=== PATIENT | male | born 1945 | race Caucasian/White ===

== ENCOUNTER 2016-10-13 01:27 | Observation (INO) ==
--- NOTE | 2016-10-13 02:18 | Emergency Department Note ---
Arrival - Arrival Chief Complaint: Chest Pain Stated Complaint: chest pain ED Nursing Triage Note: C/O Chest pain across lower chest- onset yesterday. Pt reports that the main reason he is here is for frequent urination and lower back pain that started last Monday. Pt reports that he was seen in the ER for this complaint and also saw PCP earlier this week and no DX was made. Pt states that he is urinating every hour and wants to be admitted to get down to the bottom of this problem. Denies fever. Reports that he is urinating an adequate amount, but it is just frequently. Mode of Arrival: Ambulatory Limitations: No Limitations Source: Patient Time Seen by Provider: 10/13/16 01:43 - History of Present Illness HPI Narrative: Patient complains of right sided and substernal cramping chest pain intermittently since around 6:00 tonight. Episodes last approximately 30 minutes. He is currently asymptomatic. He denies any nausea, vomiting, shortness of breath or diaphoresis. He has some chronic numbness to the dorsum of the left hand and he states that this may have been a little worse today but he has had no pain in the left upper extremity. He notes no exacerbating or relieving factors. He does have a history of heart disease with a stent in 2011. The patient also complains of frequent urination for the past 2 days. He was seen here 4 days ago for lower back pain. Allergies/Adverse Reactions: Allergies Allergy/AdvReac Type Severity Reaction Status Date / Time azithromycin [From Zithromax] Allergy Unknown Unknown/Unable Verified 07/17/16 11:27 to obtain Home Medications: Home Medications Medication Instructions Recorded Confirmed Type Aspirin [Ecotrin] 81 mg PO DAILY 11/13/14 10/13/16 History Clopidogrel [Plavix] 75 mg PO DAILY 11/13/14 10/13/16 History Gabapentin 100 mg PO TID 11/13/14 10/13/16 History Lisinopril 20 mg PO DAILY 11/13/14 10/13/16 History Magnesium Oxide 400 mg PO TID 11/13/14 10/13/16 History Metformin HCl 1,000 mg PO BID W/MEALS 11/13/14 10/13/16 History Omeprazole [Prilosec] 20 mg PO DAILY 11/13/14 10/13/16 History Pravastatin Sodium 40 mg PO DAILY 11/13/14 10/13/16 History Tamsulosin [Flomax] 0.4 mg PO BID 11/13/14 10/13/16 History Gemfibrozil [Lopid] 600 mg PO BID 09/22/15 10/13/16 History Hyoscyamine Tab [Levsin Tab] 0.125 mg PO Q6H PRN 04/08/16 10/13/16 History Carvedilol [Coreg] 6.25 mg PO BID #180 tablet 04/10/16 10/13/16 Rx Oxybutynin Chloride [Oxybutynin 10 mg PO DAILY 10/09/16 10/13/16 History Chloride ER] sitaGLIPtin [Januvia] 100 mg PO DAILY 10/09/16 10/13/16 History Review of System - Review of System 12 point system: reviewed and no additional remarkable complaints except as stated - Review of System Constitutional: Absent: diaphoresis, fever, weakness Head/Ears/Nose/Throat: Absent: nasal drainage, sore throat Respiratory: Absent: cough, respiratory distress Cardiovascular: Present: chest pain. Absent: palpitations, dyspnea on exertion , orthopnea, edema, syncope Gastrointestinal: Absent: abdominal pain, nausea, vomiting Genitourinary male: Present: frequency. Absent: dysuria, discharge Musculoskeletal: Present: back pain Medical,Surgical,& Family Hx - Medical History Cardio: History of: CAD, Hypertension, PR Neurology: History of: Cerebrovascular Accident (2011), TIA (2012) No history of: Seizures HEENT: History of: Eye Problem (wears glasses) Endocrine: History of: Diabetes Mellitus (NIDDM) (Metformin), Dyslipidemia Genitourinary: History of: Prostate Problems (Enlarged prostate) Gastrointestinal: History of: GERD, Liver Problems (Spot on liver (DR. north) ) Musculoskeletal: History of: Back/Neck Problems (chronic neck pain), Degenerative Disk Disease - Surgical History Cardiac Surgeries: Sugical HX of: Cardiac Catheterization (stent placed in 2011) Abdominal Surgeries: Surgical HX of: Colonoscopy, EGD Reproductive Surgeries: Surgical HX of;: Genitourinary Surgery, Prostate Surgery - Family History Family History: Reports;: Family Diabetes (Mother, Father, Brother, Sister), Family Heart Disease (Sister), Family Hypertension (Mother, Father, Sister) - Social History Smoking Status: Former smoker Frequency of Alcohol Use: None Type of Drug Use: None Exam Physical Examination: GENERAL: Alert. No acute distress. HEENT: Normocephalic and atraumatic. There is no nasal drainage. No pharyngeal erythema or exudate. NECK: Normal inspection. Supple. No lymphadenopathy or meningismus. LUNGS: No respiratory distress. Clear to auscultation bilaterally, no wheezes, rales or rhonchi. HEART: Regular rate and rhythm. ABDOMEN: Soft, nontender and nondistended with normoactive bowel sounds. BACK: Normal inspection. SKIN: Color normal. Warm and dry. EXTREMITIES: Nontender. Normal range of motion. No pedal edema. NEUROLOGICAL/PSYCHIATRIC: Alert and oriented -3 with normal mood and affect. Cranial nerves normal. No motor or sensory deficit. Vital Signs: Vital Signs Temperature 98.2 F 10/13/16 01:33 Pulse Rate 62 10/13/16 01:33 Respiratory Rate 18 10/13/16 02:22 Blood Pressure 119/63 10/13/16 01:33 O2 Sat by Pulse Oximetry 97 10/13/16 01:33 Course - Reevaluation(s) Reevaluation #1: Patient has remained asymptomatic since arrival here. He is sleeping comfortably. His workup is essentially negative, however, he does have a history of CAD and had a positive stress test back in March. He stopped his isosorbide at some point and after further talking to him it sounds like he has been having episodes of chest pain about once a week for the last few months. I discussed patient with Dr. Hubbard and will admit for rule out and further evaluation. Time: 05:11 Results - Labs CBC & BMP: 10/13/16 02:15 10/13/16 02:15 Lab Results: I have reviewed the patients labs Labs: Laboratory Tests 10/13/16 10/13/16 10/13/16 02:15 02:15 02:15 INR 1.0 Magnesium 1.8 Total Bilirubin < 0.39 AST 13 ALT 17 CK-MB (CK-2) 2.2 Troponin I < 0.015 Urine RBC <1 Urine WBC <1 - Impressions EKG shows a normal sinus rhythm at 65 with an occasional PVC. There are Q waves in V2. Chest x-ray shows no acute cardiopulmonary abnormality. Disposition Clinical Impression: Atypical chest pain, CAD (coronary artery disease) Case discussed with: patient Disposition: Still a Patient Condition: Stable Time of Disposition: 05:13
[2016-10-13 02:22] LABS: Basophils % 0.5 % (0.0-0.8); Eosinophils # 0.1 10*3/uL (0.0-0.87); Eosinophils % 2.4 % (0.00-10.9); Hematocrit 37.4 VOL% (42.0-52.0); Hemoglobin 12.5 GM/DL (14.0-18.0); Immature Granulocytes % 0.2 %; Immature Granulocytes Absolute 0.01 #; Lymphocytes # 2.8 10*3/uL (1.4-4.0); Lymphocytes % 49.2 % (21.2-54.2); Mean Corpuscular HGB Conc 33.4 GM/DL (32-36); Mean Corpuscular Hemoglobin 31 PG (27-34); Mean Corpuscular Volume 93.3 FL (87-102); Mean Platelet Volume 11.2 FL (9.6-12.0); Monocytes # 0.3 10*3/uL (0.11-0.8); Monocytes % 5.8 % (1.7-12.7); Neutrophils # 2.4 10*3/uL (1.4-7.4); Neutrophils % 41.9 % (38.7-73.9); Platelet Count 164 T/CUMM (130-400); Red Blood Count 4.01 MC/CUMM (3.8-5.5); Red Cell Distribution Width 13.4 % (9.3-17.3); White Blood Count 5.7 T/CUMM (4-12)
[2016-10-13 02:31] LABS: PT Patient Result 10.7 SECS; Partial Thromboplastin Time 34.1 SECS (0-40)
[2016-10-13 02:49] LABS: Alanine Aminotransferase 17 U/L (16-61); Albumin 3.9 G/DL (3.4-5.0); Alkaline Phosphatase 60 U/L (45-117); Amylase 47 U/L (25-115); Aspartate Amino Transferase 13 U/L (0-37); Bilirubin,Total < 0.39 MG/DL (0.2-1.0); Blood Urea Nitrogen 13 MG/DL (7-18); Calcium 9.6 MG/DL (8.5-10.1); Glucose 97 MG/DL (74-106); Magnesium 1.8 MG/DL (1.8-2.4); Osmolality,Calculated 282.1 MOS/KG (273-304); Potassium 4.3 MMOL/L (3.5-5.1); Sodium 142 MMOL/L (136-145); Total Protein 7.1 G/DL (6.4-8.3); Troponin I Only < 0.015 NG/ML (0.00-0.045)
[2016-10-13 04:07] LABS: Apearance,Urine CLEAR (Clear); Bilirubin,Urine Negative (Negative); Blood, Urine Negative (Negative); Glucose,Urine (UA) Negative (Negative); Ketones,Urine Negative (Negative); Mucus,Urine Occasional /LPF (Occasional); Nitrite,Urine Negative (Negative); Protein,Urine Negative; RBC,Urine <1 /HPF (0-4); Urine Color Straw (Yellow); Urine Specific Gravity 1.008 (1.001-1.035); Urine Urobilinogen < 2.0 EU/DL (0.2-1.0); WBC,Urine <1 /HPF (0-6)
[2016-10-13] MEDS ORDERED: HYOSCYAMINE 0.125 MG TABLET PO PRN (05:44)
[2016-10-13] MEDS ORDERED: ONDANSETRON 4 MG/2 ML VIAL IV PRN (05:44)
[2016-10-13] MEDS ORDERED: MAGNESIUM SULF RIDER 2 GM in PREMIX 1 EACH IV PRN (05:44)
[2016-10-13] MEDS ORDERED: GLUCAGON 1 MG VIAL IM PRN (05:44)
[2016-10-13] MEDS ORDERED: MORPHINE 2 MG/1 ML SYRINGE IV PRN (05:44)
[2016-10-13] MEDS ORDERED: MAGNESIUM SULF RIDER 4 GM in PREMIX 1 EACH IV PRN (05:44)
[2016-10-13] MEDS ORDERED: DEXTROSE 50% 25 GM/50 ML VIAL IV PRN (05:44)
[2016-10-13] MEDS ORDERED: ACETAMINOPHEN 325 MG TABLET PO PRN (05:44)
--- NOTE | 2016-10-13 07:30 | XRay Report ---
Exam: XR chest 1V portable Date: 10/13/2016 2:15 AM Indication: Chest pain Comparison: 04/16/2016 Technical: AP portable Findings: Mild cardiac enlargement. Osteophytes are present thoracic spine with arthritic changes of the AC joints bilaterally. No obvious infiltrate or effusion. Mediastinum is otherwise intact Impression: 1. Cardiomegaly without decompensation 2. No acute cardiopulmonary pathology 3. Degenerative spondylosis change thoracic spine and arthritic changes AC joints bilaterally PROCEDURE INTERPRETED AT [facility] DEPARTMENT OF RADIOLOGY Final Report Signed by: Dr. Uziel Matthews
[2016-10-13 07:31] LABS: Troponin I Only < 0.015 NG/ML (0.00-0.045)
[2016-10-13] MEDS: LISINOPRIL 20 MG TABLET PO SCH (09:03)
[2016-10-13] MEDS: GABAPENTIN 100 MG CAPSULE PO SCH ×3 (09:03→21:53)
[2016-10-13] MEDS: PRAVASTATIN 40 MG TABLET PO SCH (09:03)
[2016-10-13] MEDS: TAMSULOSIN 0.4 MG CAPSULE PO SCH ×2 (09:03→21:53)
[2016-10-13] MEDS: CLOPIDOGREL 75 MG TABLET PO SCH (09:03)
[2016-10-13] MEDS: PANTOPRAZOLE 40 MG TABLET PO SCH (09:03)
[2016-10-13] MEDS: MAGNESIUM OXIDE 400 MG TABLET PO SCH ×3 (09:03→21:53)
[2016-10-13] MEDS: ASPIRIN EC 81 MG TABLET PO SCH (09:03)
[2016-10-13] MEDS: metFORMIN 500 MG TABLET PO SCH ×2 (09:04→16:40)
[2016-10-13] MEDS: GEMFIBROZIL 600 MG TABLET PO SCH ×2 (09:04→21:53)
[2016-10-13] MEDS: sitaGLIPtin 100 MG TABLET PO SCH (09:04)
[2016-10-13] MEDS: CARVEDILOL 6.25 MG TABLET PO SCH ×2 (09:04→21:52)
--- NOTE | 2016-10-13 09:24 | Cardiology History & Physical ---
<Mariia Lewis E - Last Filed: 10/13/16 08:40> Assessment and Plan - Time spent with patient Time spent with patient: Greater than 30 minutes (due to assessment, plan, and documentation) (1) Urinary frequency Status: Acute Assessment and plan: See plan of care listed below. Current Visit: Yes (2) Low back pain Status: Acute Assessment and plan: See plan of care listed below. Current Visit: Yes (3) Atypical chest pain Status: Acute Assessment and plan: See plan of care listed below. Current Visit: Yes (4) CAD (coronary artery disease) Status: Chronic Assessment and plan: See plan of care listed below. Current Visit: Yes (5) HTN (hypertension) Status: Chronic Assessment and plan: See plan of care listed below. Current Visit: No (6) T2DM (type 2 diabetes mellitus) Status: Chronic Assessment and plan: See plan of care listed below. Current Visit: No (7) Hyperlipemia Status: Chronic Assessment and plan: See plan of care listed below. Current Visit: No (8) GERD (gastroesophageal reflux disease) Status: Chronic Assessment and plan: See plan of care listed below. Current Visit: Yes (9) BPH (benign prostatic hyperplasia) Status: Chronic Assessment and plan: See plan of care listed below. Current Visit: Yes (10) Cervical disc disease Status: Chronic Assessment and plan: See plan of care listed below. Current Visit: Yes (11) Former tobacco use Status: Chronic Assessment and plan: See plan of care listed below. Current Visit: Yes History of Present Illness Chief complaint: urinary frequency, low back pain History of present illness: Pitch Gatherer: Dr. Erazo PCP: Dr. Gaviria Mr. 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 He had an abnormal but stable exercise cardiac stress testing 03/2016 which showed moderate reversible ischemia in the basal/mid inferolateral region; at that time his symptoms were resolved with medical management. He also has a history of hypertension, hyperlipidemia, type 2 diabetes, GERD, benign prostatic hyperplasia, cervical disc disease, tobacco abuse, family history of early CAD. He is a former smoker having quit in 1997. Last echocardiogram was done 04/09 which revealed mild LVH, EF 60%, grade 1 diastolic dysfunction, and mild left atrial enlargement. Mr. Rutledge presented to the emergency room shortly after midnight this morning with a primary complaint of urinary frequency and low back pain that started last Monday. He also mentioned that yesterday he had an episode of right sided to midsternal chest discomfort. He was admitted to our service for further evaluation. He was recently seen in the emergency room on 10/09/2016 for complaints of low back pain and had a normal UA, no rash to suggest shingles, no injury to suggest fracture, no neurologic deficits or signs or symptoms of infection or acute abdominal process to require further evaluation. It was recommended he follow with his PCP which he did but no diagnosis was made. He reports he has been seen in the past by Dr. Kedar Alves with urology and was placed on prostate medication but he reports he has not noticed any difference. He reports he has been urinating a fair amount every hour. He denies dysuria , hematuria, nausea, vomiting, fever, chills. He does have some mild CVAT and tenderness to palpation and suprapubic region and right lower quadrant and left lower quadrant of his abdomen. Urinalysis was unremarkable. We will send off for culture. He reports he is fairly active and has a large garden that he works on a regular basis. He tells me that he is able to perform several hours of moderate intensity activity with gardening without dyspnea on exertion or chest discomfort on exertion. Last night around 6 PM, he had sudden onset of right sided chest tube midsternal chest pain. He reports this felt like a throbbing sensation and waxed and waned for approximately 20-30 minutes. He tells me that he took his last nitroglycerin and the pain subsided and he has had no further pain since. He had no associated signs or symptoms. There is no radiation to the left side of his chest, jaw, neck, or arms. His cardiac biomarkers are negative but EKG does show some ST changes in the inferior and septal leads. Will hold patient NPO, discuss with Dr. Erazo and await his additional recommendations. Assessment/Plan: 1. Urinary frequency - Will continue BPH medications and consult urology for further evaluation and management. He has been afebrile and his WBC has been normal. 2. Low back pain - He does have chronic low back pain although he now has mild CVAT and suprapubic tenderness to palpation. Will consult urology at patient's request. 3. Atypical chest pain - Patient presents with atypical chest pain, likely noncardiac in nature considering he had an abnormal but stable exercise stress test in March 2016. At that time, there was no ACS and his symptoms resolved with medical management. Will repeat echocardiogram. 4. Coronary artery disease - Patient is status post posterior infarction September with an intermediate branch stent. He had an abnormal but stable exercise cardiac stress testing 03/2016 which showed moderate reversible ischemia in the basal/mid inferolateral region. 5. Hypertension - Will resume home medications, monitor, and adjust accordingly. 6. Diabetes Mellitus - Accuchecks ACHS with sliding scale insulin. 7. Dyslipidemia - Continue lipid lowering agent. 8. GERD - Continue PPI. 9. BPH - Continue BPH medications. Patient requests to be seen by his urologist. Will place consult for Dr. Kedar Alves to see patient regarding his urinary frequency and low back pain. Will obtain urine culture. 10. Cervical disc disease - Patient is followed by Dr. Knowles at [facility] and has required injections in his neck and lower back. 11. Former tobacco use - Patient is a former smoker having quit in 1997. Home Medications Medication Instructions Recorded Confirmed Type Aspirin [Ecotrin] 81 mg PO DAILY 11/13/14 10/13/16 History Clopidogrel [Plavix] 75 mg PO DAILY 11/13/14 10/13/16 History Gabapentin 100 mg PO TID 11/13/14 10/13/16 History Lisinopril 20 mg PO DAILY 11/13/14 10/13/16 History Magnesium Oxide 400 mg PO TID 11/13/14 10/13/16 History Metformin HCl 1,000 mg PO BID W/MEALS 11/13/14 10/13/16 History Omeprazole [Prilosec] 20 mg PO DAILY 11/13/14 10/13/16 History Pravastatin Sodium 40 mg PO DAILY 11/13/14 10/13/16 History Tamsulosin [Flomax] 0.4 mg PO BID 11/13/14 10/13/16 History Gemfibrozil [Lopid] 600 mg PO BID 09/22/15 10/13/16 History Hyoscyamine Tab [Levsin Tab] 0.125 mg PO Q6H PRN 04/08/16 10/13/16 History Carvedilol [Coreg] 6.25 mg PO BID #180 tablet 04/10/16 10/13/16 Rx Oxybutynin Chloride [Oxybutynin 10 mg PO DAILY 10/09/16 10/13/16 History Chloride ER] sitaGLIPtin [Januvia] 100 mg PO DAILY 10/09/16 10/13/16 History Allergies Allergy/AdvReac Type Severity Reaction Status Date / Time azithromycin [From Zithromax] Allergy Unknown Unknown/Unable Verified 07/17/16 11:27 to obtain Review of systems: - Constitutional: Present: As per HPI. Absent: anorexia, chills, daytime sleepiness, excessive sweating, fever(s), frequent falls, headache(s), increased appetite, lethargy, malaise, night sweats, stops breathing during sleep, weakness, weight gain, weight loss, fatigue. - EENT Eyes: Present: As per HPI. Absent: blurry vision, diplopia, loss of vision Ears: Present: As per HPI. Absent: decreased hearing, ear discharge, ear pain Nose, mouth and throat: Present: As per HPI. Absent: dysphagia, epistaxis, headache(s), hoarseness, lip swelling, nasal congestion, neck mass, neck pain, sinus pressure, sore throat, throat swelling, tongue swelling, vertigo - Cardiovascular: Present:chest pain at rest, as per HPI. Absent: chest pain with activity, dyspnea, dyspnea on exertion, edema, claudication, diaphoresis, radiating jaw, neck or arm pain, lightheadedness, orthopnea, palpitations, PND - Respiratory: Present: as per HPI. Absent: dyspnea, dyspnea on exertion, cough , hemoptysis, wheezing, snoring, pain on inspiration - Gastrointestinal: Present: As per HPI. Absent: abdominal pain, bloating, change in bowel habits, constipation, diarrhea, heartburn, hematemesis, hematochezia, loose stools, melena, nausea, vomiting - Genitourinary: Present: urinary frequency, As per HPI. Absent: difficulty urinating, dysuria, flank pain, hematuria, nocturia, urinary incontinence - Musculoskeletal: Present: back pain, As per HPI. Absent: arthralgias, joint swelling, limited range of motion, muscle cramps, muscle weakness, myalgias - Neurological: Present: As per HPI. Absent: abnormal gait, abnormal speech, behavioral changes, confusion, convulsions, disequilibrium, dizziness, focal weakness, frequent falls, headache(s), memory loss, numbness, paresthesias, radicular pain, syncope, tremor(s) - Psychiatric: Present: As per HPI. Absent: anxiety, confusion, depression, panic attacks - Endocrine: Present: As per HPI. Absent: cold intolerance, fatigue, heat intolerance, polydipsia, polyphagia - Hematologic/Lymphatic: Present: As per HPI. Absent: easy bleeding, easy bruising, lymphadenopathy Medical,Surgical,& Family Hx - Medical History Cardio: History of: CAD, Hypertension, [place] Neurology: History of: Cerebrovascular Accident (2011), TIA (2012) No history of: Seizures HEENT: History of: Eye Problem (wears glasses) Endocrine: History of: Diabetes Mellitus (NIDDM) (Metformin), Dyslipidemia Genitourinary: History of: Prostate Problems (Enlarged prostate) Gastrointestinal: History of: GERD, Liver Problems (Spot on liver (DR. north) ) Musculoskeletal: History of: Back/Neck Problems (chronic neck pain), Degenerative Disk Disease - Surgical History Cardiac Surgeries: Sugical HX of: Cardiac Catheterization (stent placed in 2011) Abdominal Surgeries: Surgical HX of: Colonoscopy, EGD Reproductive Surgeries: Surgical HX of;: Genitourinary Surgery, Prostate Surgery - Family History Family History: Reports;: Family Diabetes (Mother, Father, Brother, Sister), Family Heart Disease (Sister), Family Hypertension (Mother, Father, Sister) - Social History Smoking Status: Former smoker Frequency of Alcohol Use: None Type of Drug Use: None Marital Status: Single Lives With:: Alone Functional capacity: independent ambulation Cardiology Physical Exam - Constitutional Vitals: Vital Signs Temp Pulse Resp BP Pulse Ox 98 F 75 18 141/79 97 10/13/16 08:00 10/13/16 08:00 10/13/16 08:00 10/13/16 08:00 10/13/16 08:00 Intake and Output 10/12/16 10/13/16 10/13/16 22:59 06:59 14:59 Other: Weight 193 lb Exam: General appearance: Pleasant and cooperative. Overweight, no acute distress. - Head Head exam: Present: normal inspection, normocephalic, atraumatic. Absent: hematoma, laceration - Eye Eye exam: Present: EOMI. Absent: conjunctival injection, nystagmus, periorbital swelling, scleral icterus, laceration to eyelids Pupils: Present: PERRL. Absent: constricted, dilated, fixed, irregular, unequal - ENT ENT exam: Present: normal exam, normal external ear exam - Neck Neck exam: Present: normal inspection. Absent: lymphadenopathy, meningismus, tenderness, thyromegaly - Respiratory Respiratory exam: Present: clear to auscultation bilaterally. Absent: accessory muscle use, chest wall tenderness - Cardiovascular Cardiovascular exam: Present: regular rate and rhythm, systolic murmur. Absent : gallop, JVD, rubs - GI/Abdominal GI/Abdominal exam: Present: normal bowel sounds, soft. Absent: distended, firm , guarding, hernia, mass, tenderness, rebound. - Extremities Exam Extremities exam: Present: normal inspection, normal capillary refill. Upper extremity pulses 2+. Lower extremity pulses 2+. Absent: calf tenderness, edema -Musculoskeletal Exam Musculoskeletal: Present: No Fluid Collection, No Pain, Normal Range of Motion - Back Exam Back exam: Present: normal inspection. Absent: muscle spasm, vertebral tenderness - Neurological Exam Neurological exam: Present: alert, oriented X3, grossly intact without resting or essential tremor - Psychiatric Psychiatric exam: Present: normal affect, normal mood - Skin Skin exam: Present: normal color, warm, dry, intact. Absent: cyanosis, diaphoretic, rash, urticaria Result/EKG - Labs CBC & BMP: 10/13/16 02:15 10/13/16 02:15 Lab Results: I have reviewed the past 24 hour labs Labs: Laboratory Results - last 24 hr 10/13/16 10/13/16 10/13/16 02:15 02:15 02:15 WBC RBC Hgb Hct MCV MCH MCHC RDW Plt Count MPV Neut % (Auto) Lymph % (Auto) Beadle % (Auto) Eos % (Auto) Baso % (Auto) Neut # (Auto) Lymph # (Auto) Beadle # (Auto) Eos # (Auto) Baso # (Auto) Immature Gran % Nucleated RBC % Immature Gran # Nucleated RBCs # INR 1.0 PT Patient/Control Mix 10.7 Circ Anticoag PTT 34.1 Sodium 142 Potassium 4.3 Chloride 104 Carbon Dioxide 27 Anion Gap 15.3 H BUN 13 Creatinine 1.40 H GFR Calculation 59 BUN/Creatinine Ratio 9.00 Glucose 97 Calculated Osmolality 282.1 Calcium 9.6 Magnesium 1.8 Total Bilirubin < 0.39 AST 13 ALT 17 Alkaline Phosphatase 60 Total Creatine Kinase 161 CK-MB (CK-2) 2.2 Troponin I < 0.015 Total Protein 7.1 Albumin 3.9 Globulin 3.2 Albumin/Globulin Ratio 1.2 Amylase 47 Lipase 262.0 Urine Color Straw Urine Appearance Clear Urine pH 6.0 Ur Specific Reasnor 1.008 Urine Protein Negative Urine Glucose (UA) Negative Urine Ketones Negative Urine Blood Negative Urine Nitrate Negative Urine Bilirubin Negative Urine Urobilinogen < 2.0 H Urine Leukocytes Negative Urine RBC <1 Urine WBC <1 Urine Mucus Occasional Ur Culture Indicated? Not indicated 10/13/16 10/13/16 02:15 06:21 WBC 5.7 RBC 4.01 Hgb 12.5 L Hct 37.4 L MCV 93.3 MCH 31 MCHC 33.4 RDW 13.4 Plt Count 164 MPV 11.2 Neut % (Auto) 41.9 Lymph % (Auto) 49.2 Beadle % (Auto) 5.8 Eos % (Auto) 2.4 Baso % (Auto) 0.5 Neut # (Auto) 2.4 Lymph # (Auto) 2.8 Beadle # (Auto) 0.3 Eos # (Auto) 0.1 Baso # (Auto) 0.0 Immature Gran % 0.2 Nucleated RBC % 0.0 Immature Gran # 0.01 Nucleated RBCs # 0.00 INR PT Patient/Control Mix Circ Anticoag PTT Sodium Potassium Chloride Carbon Dioxide Anion Gap BUN Creatinine GFR Calculation BUN/Creatinine Ratio Glucose Calculated Osmolality Calcium Magnesium Total Bilirubin AST ALT Alkaline Phosphatase Total Creatine Kinase 138 CK-MB (CK-2) 1.4 Troponin I < 0.015 Total Protein Albumin Globulin Albumin/Globulin Ratio Amylase Lipase Urine Color Urine Appearance Urine pH Ur Specific Reasnor Urine Protein Urine Glucose (UA) Urine Ketones Urine Blood Urine Nitrate Urine Bilirubin Urine Urobilinogen Urine Leukocytes Urine RBC Urine WBC Urine Mucus Ur Culture Indicated? - EKG EKG results: interpreted by me, sinus rhythm (with T-wave abnormality) <Aamir Erazo - Last Filed: 10/13/16 17:20> History of Present Illness History of present illness: Cardiology addendum Patient admitted to my service with urinary frequency. He has chronic cervical and low back pain and is followed by Dr. Knowles [facility] clinic. He denies hematuria dysuria or foul-smelling urine. He is concerned about urinary frequency. He is taking Flomax 0.4 mg daily Status post posterior infarction with intermediate branch stent. Abnormal but stable exercise cardiac stress test March 2016 which showed inferolateral scar. EKG unchanged. This is not a cardiac problem. Plan Dr. Kedar Alves to see today for recurrent urinary frequency. This is a long- standing problem for this patient. . Cardiology Physical Exam - Constitutional Vitals: Vital Signs Temp Pulse Resp BP Pulse Ox 97.5 F L 48 L 18 149/87 100 10/13/16 15:53 10/13/16 15:53 10/13/16 15:53 10/13/16 15:53 10/13/16 15:53 Intake and Output 10/13/16 10/13/16 10/13/16 07:59 15:59 23:59 Intake Total 660 / 660 Output Total 900 / 900 Balance -240 / -240 Intake: Oral 660 / 660 Output: Urine 900 / 900 Other: Voiding Method Urinal # Bowel Movements 2 Weight 87.543 kg Patient Weight 10/13/16 23:59 Weight 87.543 kg Result/EKG - Labs CBC & BMP: 10/13/16 02:15 10/13/16 02:15 Labs: Laboratory Results - last 24 hr 10/13/16 10/13/16 10/13/16 02:15 02:15 02:15 WBC RBC Hgb Hct MCV MCH MCHC RDW Plt Count MPV Neut % (Auto) Lymph % (Auto) Beadle % (Auto) Eos % (Auto) Baso % (Auto) Neut # (Auto) Lymph # (Auto) Beadle # (Auto) Eos # (Auto) Baso # (Auto) Immature Gran % Nucleated RBC % Immature Gran # Nucleated RBCs # INR 1.0 PT Patient/Control Mix 10.7 Circ Anticoag PTT 34.1 Sodium 142 Potassium 4.3 Chloride 104 Carbon Dioxide 27 Anion Gap 15.3 H BUN 13 Creatinine 1.40 H GFR Calculation 59 BUN/Creatinine Ratio 9.00 Glucose 97 POC Glucose Calculated Osmolality 282.1 Calcium 9.6 Magnesium 1.8 Total Bilirubin < 0.39 AST 13 ALT 17 Alkaline Phosphatase 60 Total Creatine Kinase 161 CK-MB (CK-2) 2.2 Troponin I < 0.015 Total Protein 7.1 Albumin 3.9 Globulin 3.2 Albumin/Globulin Ratio 1.2 Triglycerides Cholesterol LDL Cholesterol VLDL Cholesterol HDL Cholesterol Heart Disease Risk Ratio Amylase 47 Lipase 262.0 Urine Color Straw Urine Appearance Clear Urine pH 6.0 Ur Specific Reasnor 1.008 Urine Protein Negative Urine Glucose (UA) Negative Urine Ketones Negative Urine Blood Negative Urine Nitrate Negative Urine Bilirubin Negative Urine Urobilinogen < 2.0 H Urine Leukocytes Negative Urine RBC <1 Urine WBC <1 Urine Mucus Occasional Ur Culture Indicated? Not indicated 10/13/16 10/13/16 10/13/16 02:15 06:21 06:21 WBC 5.7 RBC 4.01 Hgb 12.5 L Hct 37.4 L MCV 93.3 MCH 31 MCHC 33.4 RDW 13.4 Plt Count 164 MPV 11.2 Neut % (Auto) 41.9 Lymph % (Auto) 49.2 Beadle % (Auto) 5.8 Eos % (Auto) 2.4 Baso % (Auto) 0.5 Neut # (Auto) 2.4 Lymph # (Auto) 2.8 Beadle # (Auto) 0.3 Eos # (Auto) 0.1 Baso # (Auto) 0.0 Immature Gran % 0.2 Nucleated RBC % 0.0 Immature Gran # 0.01 Nucleated RBCs # 0.00 INR PT Patient/Control Mix Circ Anticoag PTT Sodium Potassium Chloride Carbon Dioxide Anion Gap BUN Creatinine GFR Calculation BUN/Creatinine Ratio Glucose POC Glucose Calculated Osmolality Calcium Magnesium Total Bilirubin AST ALT Alkaline Phosphatase Total Creatine Kinase 138 CK-MB (CK-2) 1.4 Troponin I < 0.015 Total Protein Albumin Globulin Albumin/Globulin Ratio Triglycerides 134 Cholesterol 117 LDL Cholesterol 67.0 VLDL Cholesterol 26.8 HDL Cholesterol 34 L Heart Disease Risk Ratio 3.44 Amylase Lipase Urine Color Urine Appearance Urine pH Ur Specific Reasnor Urine Protein Urine Glucose (UA) Urine Ketones Urine Blood Urine Nitrate Urine Bilirubin Urine Urobilinogen Urine Leukocytes Urine RBC Urine WBC Urine Mucus Ur Culture Indicated? 10/13/16 10/13/16 10/13/16 07:37 08:30 11:04 WBC RBC Hgb Hct MCV MCH MCHC RDW Plt Count MPV Neut % (Auto) Lymph % (Auto) Beadle % (Auto) Eos % (Auto) Baso % (Auto) Neut # (Auto) Lymph # (Auto) Beadle # (Auto) Eos # (Auto) Baso # (Auto) Immature Gran % Nucleated RBC % Immature Gran # Nucleated RBCs # INR PT Patient/Control Mix Circ Anticoag PTT Sodium Potassium Chloride Carbon Dioxide Anion Gap BUN Creatinine GFR Calculation BUN/Creatinine Ratio Glucose POC Glucose 111 H Calculated Osmolality Calcium Magnesium Total Bilirubin AST ALT Alkaline Phosphatase Total Creatine Kinase 135 136 CK-MB (CK-2) 1.3 1.6 Troponin I < 0.015 < 0.015 Total Protein Albumin Globulin Albumin/Globulin Ratio Triglycerides Cholesterol LDL Cholesterol VLDL Cholesterol HDL Cholesterol Heart Disease Risk Ratio Amylase Lipase Urine Color Urine Appearance Urine pH Ur Specific Reasnor Urine Protein Urine Glucose (UA) Urine Ketones Urine Blood Urine Nitrate Urine Bilirubin Urine Urobilinogen Urine Leukocytes Urine RBC Urine WBC Urine Mucus Ur Culture Indicated? 10/13/16 10/13/16 11:20 15:09 WBC RBC Hgb Hct MCV MCH MCHC RDW Plt Count MPV Neut % (Auto) Lymph % (Auto) Beadle % (Auto) Eos % (Auto) Baso % (Auto) Neut # (Auto) Lymph # (Auto) Beadle # (Auto) Eos # (Auto) Baso # (Auto) Immature Gran % Nucleated RBC % Immature Gran # Nucleated RBCs # INR PT Patient/Control Mix Circ Anticoag PTT Sodium Potassium Chloride Carbon Dioxide Anion Gap BUN Creatinine GFR Calculation BUN/Creatinine Ratio Glucose POC Glucose 74 110 H Calculated Osmolality Calcium Magnesium Total Bilirubin AST ALT Alkaline Phosphatase Total Creatine Kinase CK-MB (CK-2) Troponin I Total Protein Albumin Globulin Albumin/Globulin Ratio Triglycerides Cholesterol LDL Cholesterol VLDL Cholesterol HDL Cholesterol Heart Disease Risk Ratio Amylase Lipase Urine Color Urine Appearance Urine pH Ur Specific Reasnor Urine Protein Urine Glucose (UA) Urine Ketones Urine Blood Urine Nitrate Urine Bilirubin Urine Urobilinogen Urine Leukocytes Urine RBC Urine WBC Urine Mucus Ur Culture Indicated?
[2016-10-13 09:32] LABS: Troponin I Only < 0.015 NG/ML (0.00-0.045)
--- NOTE | 2016-10-13 09:50 | EKG Report ---
Stationary ECG Study [facility] Test Date: 10/13/2016 9:49:12 AM Pat Name: BUCKY TORRES Department: Room: 264 Gender: M Art Model: : 1945 Requested by: Ksenia Lewis Order Number: [id number] Reading MD: DREW CAST Intervals [place] Rate: 62 P: 51 VT: 204 QRS: 90 QRSD: 102 T: -3 QT: 381 QTc: 385 Interpretive Statements SINUS RHYTHM WITH OCCASIONAL VENTRICULAR PREMATURE COMPLEXES WITH OCCASIONAL SUPRAVENTRICULAR PREMATURE COMPLEXES POSSIBLE ANTERIOR MYOCARDIAL INFARCTION, OF INDETERMINATE AGE Electronically Signed On 10-13-16 15:55:33 CDT by DREW CAST [email or web address]
[2016-10-13 09:53] LABS: Risk Ratio 3.44; VLDL CHOLESTEROL 26.8 MG/DL
[2016-10-13 11:53] LABS: Troponin I Only < 0.015 NG/ML (0.00-0.045)
--- NOTE | 2016-10-13 12:14 | EKG Report ---
Stationary ECG Study [facility] Test Date: 10/13/2016 12:14:35 PM Pat Name: BUCKY TORRES Department: Room: 264 Gender: M Cardiovascular Invasive Specialist: : [id number] Requested by: Ksenia Lewis Order Number: [id number] Reading MD: DREW CAST Intervals [place] Rate: 82 P: 50 HI: 201 QRS: -15 QRSD: 101 T: 50 QT: 348 QTc: 387 Interpretive Statements SINUS RHYTHM ANTEROLATERAL MYOCARDIAL INFARCTION, PREVIOUSLY CITED Electronically Signed On 10-13-16 15:58:17 CDT by DREW CAST [email or web address]
[2016-10-13] MEDS: INSULIN LISPRO 100 UNIT/ML SUBCUT SCH ×3 (13:30→21:53)
--- NOTE | 2016-10-13 15:34 | ECHO Report ---
AamirHéctor Exam Date: 10/13/2016 10:17 Referring Physician: Technologist: Ramona Cabello RDCS Age: 71 Ht (in): 67 Wt (lb): 193 Gender: M Exam Location: [facility] Echo Indications: Chest pain, unspecified, Essential (primary) hypertension, Hyperlipidemia, unspecified, CAD with previous stent, GERD, BPH BP: 141 / 79 HR: 46 Rhythm: Sinus Technical Quality: Good IMPRESSIONS Normal left ventricular cavity size. EF 50 %. Grade I/IV diastolic dysfunction (abnormal relaxation filling pattern), normal to mildly elevated filling pressures. The right ventricle is normal in size and function. The right atrium is mildly enlarged. The left atrium is mildly enlarged. Morphologically normal mitral valve. Trace mitral valve regurgitation. Aortic valve sclerosis. Trace aortic valve regurgitation. Mild tricuspid valve regurgitation. [id number]. Trace pulmonary valve regurgitation. Normal pericardium without effusion. Normal ascending aorta dimension. MEASUREMENTS (Male / Female) Normal Values 2D ECHO LV Diastolic Diameter PLAX 5.3 cm 4.2 - 5.9 / 3.9 - 5.3 cm LV Systolic Diameter PLAX 3.5 cm LV Fractional Shortening PLAX 34.0 % IVS Diastolic Thickness 1.0 cm 0.6 - 1.0 / 0.6 - 0.9 cm LVPW Diastolic Thickness 1.0 cm 0.6 - 1.0 / 0.6 - 0.9 cm RV Internal Dim ED PLAX 2.7 cm Aortic Root Diameter 3.0 cm LA Systolic Diameter LX 4.0 cm 3.0 - 4.0 / 2.7 - 3.8 cm DOPPLER TR Peak Velocity 280.0 cm/s TR Peak Gradient 31.4 mmHg FINDINGS Left Ventricle Normal left ventricular cavity size. EF 50 %. Grade I/IV diastolic dysfunction (abnormal relaxation filling pattern), normal to mildly elevated filling pressures. Right Ventricle The right ventricle is normal in size and function. Right Atrium The right atrium is mildly enlarged. . Left Atrium The left atrium is mildly enlarged. Mitral Valve Morphologically normal mitral valve. Trace mitral valve regurgitation. Aortic Valve Aortic valve sclerosis. Trace aortic valve regurgitation. Tricuspid Valve Morphologically normal tricuspid valve. Mild tricuspid valve regurgitation. [id number]. Pulmonic Valve Morphologically normal pulmonic valve. Trace pulmonary valve regurgitation. Pericardium Normal pericardium without effusion. Aorta Normal ascending aorta dimension. Tadeo Kacey (Electronically Signed) Final Date: 13 October 2016 15:33
--- NOTE | 2016-10-13 17:27 | Urology Consultation ---
Assessment and Plan - Time spent with patient Time spent with patient: Greater than 30 minutes (1) Overactive bladder Status: Acute Assessment and plan: We will stop his current regimen. We will begin peripheral neuromodulation. Hopefully that helps. When he is discharged he will be sent to the office to begin the program. Current Visit: Yes History of Present Illness - Data of Consult Patient: known to practice within the last 3 years Consult date: 10/13/16 Requesting Physician: Elan Hubbard - Consult Narrative Reason for consult: Voiding dysfunction, voiding frequency History of present illness: Mr. Rutledge is a 71 year old male who I have known for quite some time. He has had previous prostate surgery. His main problem is an overactive bladder. I have tried just about every medication there is no to correct this. At times it works and then it stops working. I am not so sure that some of this is not supratentorial or neurotic in nature. But he complains of frequency again. Last medicine I put him on was Ditropan and it seemed to help at first and then quit helping. I explained to the patient the last treatment we have his peripheral neuromodulation. He is willing to try this. I explained procedure in the treatment program in length and in detail. He is willing to undergo it. As far as I am concerned he can be discharged. Upon discharge tomorrow he will go by my office and we will set up the program. I do recommend that he give the initial 12 weeks ago. It may take some people longer. If he has no benefit after 12 weeks and we can terminate it. CC: Elan Hubbard MD - Home Medications and Allergies Home Medications: Home Medications Medication Instructions Recorded Confirmed Type Aspirin [Ecotrin] 81 mg PO DAILY 11/13/14 10/13/16 History Clopidogrel [Plavix] 75 mg PO DAILY 11/13/14 10/13/16 History Gabapentin 100 mg PO TID 11/13/14 10/13/16 History Lisinopril 20 mg PO DAILY 11/13/14 10/13/16 History Magnesium Oxide 400 mg PO TID 11/13/14 10/13/16 History Metformin HCl 1,000 mg PO BID W/MEALS 11/13/14 10/13/16 History Omeprazole [Prilosec] 20 mg PO DAILY 11/13/14 10/13/16 History Pravastatin Sodium 40 mg PO DAILY 11/13/14 10/13/16 History Tamsulosin [Flomax] 0.4 mg PO BID 11/13/14 10/13/16 History Gemfibrozil [Lopid] 600 mg PO BID 09/22/15 10/13/16 History Hyoscyamine Tab [Levsin Tab] 0.125 mg PO Q6H PRN 04/08/16 10/13/16 History Carvedilol [Coreg] 6.25 mg PO BID #180 tablet 04/10/16 10/13/16 Rx Oxybutynin Chloride [Oxybutynin 10 mg PO DAILY 10/09/16 10/13/16 History Chloride ER] sitaGLIPtin [Januvia] 100 mg PO DAILY 10/09/16 10/13/16 History Allergies/Adverse Reactions: Allergies Allergy/AdvReac Type Severity Reaction Status Date / Time azithromycin [From Zithromax] Allergy Unknown Unknown/Unable Verified 07/17/16 11:27 to obtain 12 point system: reviewed and no additional remarkable complaints except as stated - Genitourinary Genitourinary: Present: nocturia, urinary frequency Exam - Constitutional Vitals: Period Temp Pulse Resp BP Sys/Nunez Pulse Ox Last 24 Hr 97.5 F-98.7 F 48-82 16-20 119-185/63-87 96-100 - GI/Abdominal GI/Abdominal exam: Present: normal bowel sounds, soft. Absent: ascites, distended, firm, guarding, hernia, mass, psoas sign, tenderness, rebound - Genitourinary Genitourinary: scrotum without lesions, cysts, edema or rash, penis with no lesions or discharge, prostate nontender, with no enlargement or nodules Results - Labs CBC & BMP: 10/13/16 02:15 10/13/16 02:15 Lab Results: I have reviewed the past 24 hour labs
[2016-10-14 05:10] LABS: Basophils % 0.5 % (0.0-0.8); Eosinophils # 0.1 10*3/uL (0.0-0.87); Eosinophils % 2.5 % (0.00-10.9); Hematocrit 38.5 VOL% (42.0-52.0); Hemoglobin 12.8 GM/DL (14.0-18.0); Immature Granulocytes % 0.4 %; Immature Granulocytes Absolute 0.02 #; Lymphocytes # 2.3 10*3/uL (1.4-4.0); Lymphocytes % 39.9 % (21.2-54.2); Mean Corpuscular HGB Conc 33.2 GM/DL (32-36); Mean Corpuscular Hemoglobin 31 PG (27-34); Mean Corpuscular Volume 92.3 FL (87-102); Mean Platelet Volume 11.8 FL (9.6-12.0); Monocytes # 0.4 10*3/uL (0.11-0.8); Monocytes % 6.2 % (1.7-12.7); Neutrophils # 2.9 10*3/uL (1.4-7.4); Neutrophils % 50.5 % (38.7-73.9); Platelet Count 159 T/CUMM (130-400); Red Blood Count 4.17 MC/CUMM (3.8-5.5); Red Cell Distribution Width 13.2 % (9.3-17.3); White Blood Count 5.7 T/CUMM (4-12)
[2016-10-14 05:37] LABS: Calcium 9.2 MG/DL (8.5-10.1); Magnesium 1.9 MG/DL (1.8-2.4); Osmolality,Calculated 283.3 MOS/KG (273-304); Potassium 4.1 MMOL/L (3.5-5.1)
[2016-10-14] MEDS: INSULIN LISPRO 100 UNIT/ML SUBCUT SCH (07:40)
[2016-10-14 07:52] VITALS: BP 125/84
--- NOTE | 2016-10-14 07:58 | Discharge Summary ---
<Mariia Lewis E - Last Filed: 10/14/16 08:05> Hospital Course - Hospital Course Hospital Course: Shift Manager: Dr. Erazo PCP: Dr. Gaviria Mr. 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 He had an abnormal but stable exercise cardiac stress testing 03/2016 which showed moderate reversible ischemia in the basal/mid inferolateral region; at that time his symptoms were resolved with medical management. Mr. Rutledge presented to the emergency room with a primary complaint of urinary frequency and low back pain that started last Monday. He also mentioned that yesterday he had an episode of right sided to midsternal chest discomfort. He was admitted to our service for further evaluation. He had been seen in the past by urologist Dr. Kedar Alves who was consulted to see him. Urology recommended he begin peripheral neuromodulation. Upon discharge, he will be sent to Dr. Alves' office to begin the program. He ruled out for [place] and given his recent abnormal but stable exercise cardiac stress test, no further cardiac evaluation was warranted. His vital signs and labwork have remained stable. His urinalysis was unremarkable. He has been afebrile, WBC normal without left shift. At this time, he is felt to have met maximum hospital benefit and will be discharged home in stable condition. He is to follow up with Dr. Alves' office today immediately after discharge. He is to follow up with Dr. Erazo in December 2016. - Time spent with patient Time with patient DS: Less than 30 minutes Diagnosis - Discharge Diagnosis (1) Urinary frequency Status: Acute (2) Low back pain Status: Chronic (3) Atypical chest pain Status: Resolved (4) CAD (coronary artery disease) Status: Chronic (5) HTN (hypertension) Status: Chronic (6) T2DM (type 2 diabetes mellitus) Status: Chronic (7) Hyperlipemia Status: Chronic (8) GERD (gastroesophageal reflux disease) Status: Chronic (9) BPH (benign prostatic hyperplasia) Status: Chronic (10) Cervical disc disease Status: Chronic (11) Former tobacco use Status: Chronic Specialty Discharge - Follow Up or Referrals Follow up with: Lam Knowles MD [Physician] - 10/24/16 1:00 pm (Please have patient follow up with Dr. Knowles regarding his low back pain at his earliest convenience. ) Kedar Alves MD [Physician] - 10/14/16 (Patient is to stop by Dr. Alves' office after discharge tomorrow to set up peripheral neuromodulation program. ) Aamir Erazo MD [Physician] - (Follow up with Dr. Erazo in 3 months ( December 2016). Appt in recall-[facility] will call pt with date and time.) Discharge Plan - Discharge Data Disposition: Disch To Home/Self Care Condition at Discharge: Stable Discharge Diet: heart healthy Activity: resume usual activities as tolerated Hygiene: no restrictions Weight Bearing at Discharge: full weight bearing Driving: no restrictions Contact your physician if you experience:: fever over 101, Difficulty voiding, Redness or swelling, Nausea/Vomiting, Shortness of breath, Bleeding, pain uncontrolled by pain medications - Discharge Medications Continue Tamsulosin [Flomax] 0.4 mg PO BID Magnesium Oxide 400 mg PO TID Omeprazole [Prilosec] 20 mg PO DAILY Clopidogrel [Plavix] 75 mg PO DAILY Pravastatin Sodium 40 mg PO DAILY Metformin HCl 1,000 mg PO BID W/MEALS Lisinopril 20 mg PO DAILY Gabapentin 100 mg PO TID Aspirin [Ecotrin] 81 mg PO DAILY Gemfibrozil [Lopid] 600 mg PO BID Hyoscyamine Tab [Levsin Tab] 0.125 mg PO Q6H PRN PRN Reason: Abdominal Pain sitaGLIPtin [Januvia] 100 mg PO DAILY Carvedilol [Coreg] 6.25 mg PO BID #180 tablet - Follow Up or Referral Follow Up: Lam Knowles MD [Physician] - 10/24/16 1:00 pm (Please have patient follow up with Dr. Knowles regarding his low back pain at his earliest convenience. ) Kedar Alves MD [Physician] - 10/14/16 (Patient is to stop by Dr. Alves' office after discharge tomorrow to set up peripheral neuromodulation program. ) Aamir Erazo MD [Physician] - (Follow up with Dr. Erazo in 3 months ( December 2016). Appt in [facility] will call pt with date and time.) - Forms/Instructions Instructions: Overactive Bladder (GEN), Acute Coronary Syndrome Exam - Constitutional Vitals: Period Temp Pulse Resp BP Sys/Nunez Pulse Ox Last 24 Hr 97.1 F-98.4 F 48-63 16-18 91-149/49-87 97-100 Exam: General appearance: Pleasant and cooperative. Overweight, no acute distress. - Head Head exam: Present: normal inspection, normocephalic, atraumatic. Absent: hematoma, laceration - Eye Eye exam: Present: EOMI. Absent: conjunctival injection, nystagmus, periorbital swelling, scleral icterus, laceration to eyelids Pupils: Present: PERRL. Absent: constricted, dilated, fixed, irregular, unequal - ENT ENT exam: Present: normal exam, normal external ear exam - Neck Neck exam: Present: normal inspection. Absent: lymphadenopathy, meningismus, tenderness, thyromegaly - Respiratory Respiratory exam: Present: clear to auscultation bilaterally. Absent: accessory muscle use, chest wall tenderness - Cardiovascular Cardiovascular exam: Present: regular rate and rhythm, systolic murmur. Absent : gallop, JVD, rubs - GI/Abdominal GI/Abdominal exam: Present: normal bowel sounds, soft. Absent: distended, firm , guarding, hernia, mass, tenderness, rebound. - Extremities Exam Extremities exam: Present: normal inspection, normal capillary refill. Upper extremity pulses 2+. Lower extremity pulses 2+. Absent: calf tenderness, edema -Musculoskeletal Exam Musculoskeletal: Present: No Fluid Collection, No Pain, Normal Range of Motion - Back Exam Back exam: Present: normal inspection. Absent: muscle spasm, vertebral tenderness - Neurological Exam Neurological exam: Present: alert, oriented X3, grossly intact without resting or essential tremor - Psychiatric Psychiatric exam: Present: normal affect, normal mood - Skin Skin exam: Present: normal color, warm, dry, intact. Absent: cyanosis, diaphoretic, rash, urticaria Discharge Results Procedures and tests throughout hospitalization: Pending Orders 10/13/16 10:10 Urine Culture Routine Labs on day of discharge: Labs from last 24 hours 10/14/16 10/14/16 10/14/16 07:12 04:13 04:13 WBC 5.7 RBC 4.17 Hgb 12.8 L Hct 38.5 L MCV 92.3 MCH 31 MCHC 33.2 RDW 13.2 Plt Count 159 MPV 11.8 Neut % (Auto) 50.5 Lymph % (Auto) 39.9 Sanders % (Auto) 6.2 Eos % (Auto) 2.5 Baso % (Auto) 0.5 Neut # (Auto) 2.9 Lymph # (Auto) 2.3 Sanders # (Auto) 0.4 Eos # (Auto) 0.1 Baso # (Auto) 0.0 Immature Gran % 0.4 Nucleated RBC % 0.0 Immature Gran # 0.02 Nucleated RBCs # 0.00 Sodium 141 Potassium 4.1 Chloride 105 Carbon Dioxide 27 Anion Gap 13.1 BUN 20 H Creatinine 1.40 H GFR Calculation 58 BUN/Creatinine Ratio 14.00 Glucose 95 POC Glucose 113 H Calculated Osmolality 283.3 Calcium 9.2 Magnesium 1.9 10/13/16 10/13/16 21:53 15:09 WBC RBC Hgb Hct MCV MCH MCHC RDW Plt Count MPV Neut % (Auto) Lymph % (Auto) Sanders % (Auto) Eos % (Auto) Baso % (Auto) Neut # (Auto) Lymph # (Auto) Sanders # (Auto) Eos # (Auto) Baso # (Auto) Immature Gran % Nucleated RBC % Immature Gran # Nucleated RBCs # Sodium Potassium Chloride Carbon Dioxide Anion Gap BUN Creatinine GFR Calculation BUN/Creatinine Ratio Glucose POC Glucose 88 110 H Calculated Osmolality Calcium Magnesium Preliminary micro results at discharge 10/13/16 10:10 Urine Culture - Preliminary Urine,Voided No Growth at 24 hours. DS: Provider Date of admission: 10/13/16 05:20 Primary care physician: Kwaku Doan MD Attending physician on admission: Elan Hubbard MD Consults: 10/13/16 09:06 Consult to Physician [CONS] Routine Comment: pt requests, urinary freq., low back pain Consulting Provider: Kedar Alves When should Consulting Provider be notified: Now Person Notified: Shanel Date Notified: 10/13/16 Time Notified: 09:45 Discharging clinician: AIRAM Chan- Expected date of discharge: 10/14/16 <Aamir Erazo - Last Filed: 10/14/16 14:26> DS: Provider Primary care physician: Kwaku Doan MD Cardiology addendum Discussed with Dr. Kedar Alves. Patient will go to his office and begin percutaneous neuromodulation Taking Flomax 0.4 mg daily. Patient has long history of BPH symptoms Rhythm and blood pressure stable. Plan Home today Continue same medications Office visit as scheduled Follow-up with Dr. Alves as scheduled
[2016-10-14] MEDS: TAMSULOSIN 0.4 MG CAPSULE PO SCH (09:34)
[2016-10-14] MEDS: metFORMIN 500 MG TABLET PO SCH (09:34)
[2016-10-14] MEDS: sitaGLIPtin 100 MG TABLET PO SCH (09:34)
[2016-10-14] MEDS: MAGNESIUM OXIDE 400 MG TABLET PO SCH (09:34)
[2016-10-14] MEDS: GABAPENTIN 100 MG CAPSULE PO SCH (09:34)
[2016-10-14] MEDS: CARVEDILOL 6.25 MG TABLET PO SCH (09:34)
[2016-10-14] MEDS: GEMFIBROZIL 600 MG TABLET PO SCH (09:34)
[2016-10-14] MEDS: PRAVASTATIN 40 MG TABLET PO SCH (09:34)
[2016-10-14] MEDS: LISINOPRIL 20 MG TABLET PO SCH (09:35)
[2016-10-14] MEDS: ASPIRIN EC 81 MG TABLET PO SCH (09:35)
[2016-10-14] MEDS: PANTOPRAZOLE 40 MG TABLET PO SCH (09:35)
[2016-10-14] MEDS: CLOPIDOGREL 75 MG TABLET PO SCH (09:35)
== END 2016-10-14 10:25 | disposition home or self-care (01) ==
LOC: N.ED 01:27 → N.EDINP 01:27 → N.TELES 05:40
PROVIDERS: ADMIT Internal Medicine Cardiovascular Disease; ATTEND Internal Medicine Cardiovascular Disease

== ENCOUNTER 2019-03-01 12:21 | Observation (INO) ==
[2019-03-01] MEDS ORDERED: NITROGLYCERIN 2% OINT 1 INCH/GM PACK TOP STA (13:25)
[2019-03-01] MEDS ORDERED: ASPIRIN 325 MG TABLET PO STA (13:25)
[2019-03-01] MEDS ORDERED: NITROGLYCERIN SL 0.4 MG TABLET SL PRN ×2 (13:25→16:17)
[2019-03-01 13:41] LABS: Basophils % 0.6 % (0.0-0.8); Eosinophils # 0.1 10*3/uL (0.0-0.87); Eosinophils % 2.1 % (0.00-10.9); Hematocrit 41.8 VOL% (42.0-52.0); Hemoglobin 13.6 GM/DL (14.0-18.0); Immature Granulocytes % 0.2 %; Immature Granulocytes Absolute 0.01 #; Lymphocytes # 2.2 10*3/uL (1.4-4.0); Lymphocytes % 46.1 % (21.2-54.2); Mean Corpuscular HGB Conc 32.5 GM/DL (32-36); Mean Corpuscular Volume 93.7 FL (87-102); Mean Platelet Volume 11.4 FL (9.6-12.0); Monocytes % 6.4 % (1.7-12.7); Neutrophils % 44.6 % (38.7-73.9); Platelet Count 174 T/CUMM (130-400); Red Blood Count 4.46 MC/CUMM (3.8-5.5); Red Cell Distribution Width 12.6 % (9.3-17.3); White Blood Count 4.8 T/CUMM (4-12)
[2019-03-01 14:17] LABS: Calcium 9.6 MG/DL (8.5-10.1); Osmolality,Calculated 282.1 MOS/KG (273-304)
[2019-03-01] MEDS ORDERED: ONDANSETRON 4 MG/2 ML VIAL IV PRN (16:13)
[2019-03-01] MEDS ORDERED: ACETAMINOPHEN 325 MG TABLET PO PRN (16:13)
[2019-03-01] MEDS ORDERED: MORPHINE 4 MG/1 ML VIAL IV PRN (16:13)
[2019-03-01] MEDS ORDERED: DEXTROSE 50% 25 GM/50 ML VIAL IV PRN (16:18)
[2019-03-01] MEDS ORDERED: GLUCAGON 1 MG VIAL IM PRN (16:18)
[2019-03-01] MEDS: INSULIN REGULAR 100 UNIT/ML SUBCUT SCH ×2 (17:58→20:20)
[2019-03-01] MEDS: carvediloL 6.25 MG TABLET PO SCH (20:31)
[2019-03-01] MEDS: GEMFIBROZIL 600 MG TABLET PO SCH (20:31)
[2019-03-01] MEDS: GABAPENTIN 400 MG CAPSULE PO SCH (20:31)
[2019-03-01] MEDS ORDERED: ROSUVASTATIN 20 MG TABLET PO SCH (21:00)
[2019-03-01] MEDS ORDERED: ENOXAPARIN 40 MG/0.4 ML SYRINGE SUBCUT SCH (21:00)
[2019-03-01] MEDS ORDERED: OXYBUTYNIN XL 10 MG TABLET PO SCH (21:00)
[2019-03-02 04:34] LABS: Basophils % 0.4 % (0.0-0.8); Eosinophils # 0.1 10*3/uL (0.0-0.87); Eosinophils % 1.9 % (0.00-10.9); Hematocrit 40.3 VOL% (42.0-52.0); Hemoglobin 12.8 GM/DL (14.0-18.0); Immature Granulocytes % 0.2 %; Immature Granulocytes Absolute 0.01 #; Lymphocytes % 41.4 % (21.2-54.2); Mean Corpuscular HGB Conc 31.8 GM/DL (32-36); Mean Corpuscular Volume 96.4 FL (87-102); Mean Platelet Volume 11.7 FL (9.6-12.0); Monocytes % 5.8 % (1.7-12.7); Neutrophils % 50.3 % (38.7-73.9); Platelet Count 133 T/CUMM (130-400); Red Blood Count 4.18 MC/CUMM (3.8-5.5); Red Cell Distribution Width 17.1 % (9.3-17.3); White Blood Count 4.9 T/CUMM (4-12)
[2019-03-02 06:15] LABS: Calcium 8.6 MG/DL (8.5-10.1); Osmolality,Calculated 284.1 MOS/KG (273-304)
[2019-03-02] MEDS: INSULIN REGULAR 100 UNIT/ML SUBCUT SCH ×2 (08:34→12:38)
[2019-03-02] MEDS: GEMFIBROZIL 600 MG TABLET PO SCH (08:44)
[2019-03-02] MEDS: carvediloL 6.25 MG TABLET PO SCH (08:44)
[2019-03-02] MEDS: GABAPENTIN 400 MG CAPSULE PO SCH (08:44)
[2019-03-02] MEDS ORDERED: CLOPIDOGREL 75 MG TABLET PO SCH (09:00)
[2019-03-02] MEDS ORDERED: PANTOPRAZOLE 40 MG TABLET PO SCH (09:00)
[2019-03-02] MEDS ORDERED: TAMSULOSIN 0.4 MG CAPSULE PO SCH (09:00)
[2019-03-02] MEDS ORDERED: ASPIRIN EC 81 MG TABLET PO SCH (09:00)
[2019-03-02 11:51] VITALS: BP 149/78
== END 2019-03-02 12:40 | disposition home or self-care (01) ==
LOC: N.EDINP 12:21 → N.ED 12:21 → SUATTDRO 16:13 → N.2W 17:30
PROVIDERS: ADMIT Emergency Medicine; ATTEND Internal Medicine